=== PATIENT | female | born 1985 | race Caucasian/White ===

== ENCOUNTER 2017-07-15 15:51 | Inpatient (IN) | payer MEDICAID ==
[~2017-07-15] VITALS: Ht 160 cm; Wt 77.0 kg
[2017-07-15 17:58] VITALS: BP 130/85
[2017-07-15] MEDS ORDERED: NO HOME MEDS (18:11)
[2017-07-15] MEDS: K and/or MAG REPLACEMENT MC SCH (18:20)
[2017-07-15] MEDS ORDERED: magnesium 2GM in 50ml NS 50 ML IV PRN (18:20)
[2017-07-15] MEDS ORDERED: potassium Cl 40MEQ/NS 500ml 500 ML IV PRN ×2 (18:20)
[2017-07-15] MEDS ORDERED: levoFLOXACIN-Levaquin 500mg/D5 100 ML IV SCH (18:20)
[2017-07-15] MEDS ORDERED: HYDROcodone/acetaminophen 5mg/325mg tablet PO PRN (18:20)
[2017-07-15] MEDS ORDERED: acetaminophen 325mg tablet PO PRN ×2 (18:20)
[2017-07-15] MEDS ORDERED: magnesium hydroxide 30ml (MOM) UD suspension PO PRN (18:20)
[2017-07-15] MEDS ORDERED: magnesium 4gm in 100ml NS 100 ML IV PRN (18:20)
[2017-07-15] MEDS ORDERED: potassium Cl 20 mEq SR tablet PO PRN ×2 (18:20)
[2017-07-15] MEDS ORDERED: HYDROmorphone inj. 0.5 MG/0.5 ML DISP.SYRIN IV PRN ×2 (18:20)
[2017-07-15] MEDS ORDERED: magnesium Cl slow-release 64mg tablet PO PRN (18:20)
[2017-07-15] MEDS ORDERED: mag hydrox/Alum hydrox/simeth 30ml oral suspension PO PRN (18:20)
[2017-07-15] MEDS: normal saline 1000ml 1,000 ML IV SCH (19:00)
[2017-07-15] MEDS: HYDROcodone/acetaminophen 10/325mg tab PO PRN ×2 (19:21→23:57)
[2017-07-15] MEDS: ondansetron/PF 4mg/2ml inj IV PRN (19:25)
[2017-07-15 19:45] VITALS: BP 149/98
[2017-07-15 20:21] LABS: BASOPHILS % (AUTO) 0.1 % (0-1); EOSINOPHILS # (AUTO) 0.1 X10'3 (0-0.9); EOSINOPHILS % (AUTO) 1.1 % (0-6); HEMATOCRIT 35.2 % (35.0-45.0); HEMOGLOBIN 12.3 g/dl (12.0-16.0); LYMPHOCYTES # (AUTO) 0.4 X10'3 (1.1-4.8); LYMPHOCYTES % (AUTO) 4.5 % (21-51); MEAN CORPUSCULAR VOLUME 82.9 FL (78-98); MEAN PLATELET VOLUME 6.8 FL (7.4-10.4); MONOCYTES # (AUTO) 0.3 X10'3 (0-0.9); MONOCYTES % (AUTO) 3.1 % (2-12); NEUTROPHILS # (AUTO) 8.5 X10'3 (1.8-7.7); NEUTROPHILS % (AUTO) 91.2 % (42-75); PLATELET COUNT 194 X10'3 (140-440); RED BLOOD COUNT 4.25 X10'6 (4.20-5.60); RED CELL DISTRIBUTION WIDTH 12.8 % (11.5-14.5); WHITE BLOOD COUNT 9.3 X10'3 (4.5-11.0)
[2017-07-15 20:33] LABS: INR 1.1 INR; PARTIAL THROMBOPLASTIN TIME 36 SECONDS (22-32); PROTHROMBIN TIME 11.3 SECONDS (9.0-12.0)
[2017-07-15 20:46] LABS: ALANINE AMINOTRANSFERASE 22 U/L (12-78); ALBUMIN/GLOBULIN RATIO 0.7 (1.1-1.5); ALKALINE PHOSPHATASE 66 IU/L (46-116); ANION GAP 10 (8-16); ASPARTATE AMINO TRANSFERASE 14 U/L (10-37); BILIRUBIN,TOTAL 0.8 MG/DL (0.1-1.0); BLOOD UREA NITROGEN 10 MG/DL (7-18); BUN/CREATININE RATIO 7.2 (6.6-38.0); CALCIUM 8.4 MG/DL (8.5-10.1); CHLORIDE 102 MMOL/L (99-107); CREATININE 1.39 MG/DL (0.40-0.90); GLUCOSE 155 MG/DL (70-104); MAGNESIUM 1.4 MG/DL (1.5-2.4); POTASSIUM 3.3 MMOL/L (3.5-5.1); SODIUM 136 MMOL/L (135-145); TOTAL CARBON DIOXIDE 24.3 MMOL/L (24-32); TOTAL PROTEIN 7.4 G/DL (6.4-8.2); eGFR 44 ML/MIN
[2017-07-15] MEDS ORDERED: temazepam 15mg capsule PO PRN (21:00)
[2017-07-15] MEDS: levoFLOXACIN-Levaquin 500mg/D5 100 ML IV SCH (21:10)
[2017-07-16] VITALS (19 sets, daily range): BP systolic 110–127; BP diastolic 70–87
[2017-07-16 00:58] LABS: CLARITY,URINE CLEAR (Clear); COLOR,URINE STRAW (Yellow); GLUCOSE, URINE NEGATIVE (Neg); KETONES,URINE NEGATIVE (Neg); LEUKOCYTE ESTERASE ,URINE TRACE (Neg); NITRITES, URINE NEGATIVE (Neg); OCCULT BLOOD,URINE TRACE-INTACT (Neg); PH,URINE 6.5 (4.8-8.0); PROTEIN,URINE NEGATIVE (Neg); UROBILINOGEN,URINE 0.2 E.U/dL (0.2-1.0)
[2017-07-16 01:02] LABS: UA COLLECTION TYPE VOIDED
[2017-07-16 01:05] LABS: BACTERIA,URINE FEW /HPF (Neg); MUCUS STRANDS NONE SEEN /LPF (Neg); RBC,URINE 0-2 /HPF (0-2); SQUAMOUS EPITHELIAL CELL,UR FEW /LPF (FEW)
[2017-07-16] MEDS: ondansetron/PF 4mg/2ml inj IV PRN (02:46)
[2017-07-16] MEDS: normal saline 1000ml 1,000 ML IV SCH ×3 (04:20→21:12)
[2017-07-16] MEDS: HYDROcodone/acetaminophen 10/325mg tab PO PRN ×2 (04:43→17:46)
[2017-07-16 05:13] LABS: BASOPHILS % (AUTO) 0 % (0-1); EOSINOPHILS # (AUTO) 0.1 X10'3 (0-0.9); HEMATOCRIT 33.3 % (35.0-45.0); HEMOGLOBIN 11.7 g/dl (12.0-16.0); LYMPHOCYTES # (AUTO) 0.6 X10'3 (1.1-4.8); LYMPHOCYTES % (AUTO) 7.4 % (21-51); MEAN CORPUSCULAR HEMOGLOBIN 29.2 PG (27.0-31.0); MEAN CORPUSCULAR VOLUME 83.4 FL (78-98); MONOCYTES # (AUTO) 0.4 X10'3 (0-0.9); NEUTROPHILS % (AUTO) 86.6 % (42-75); PLATELET COUNT 184 X10'3 (140-440); RED BLOOD COUNT 3.99 X10'6 (4.20-5.60); RED CELL DISTRIBUTION WIDTH 12.9 % (11.5-14.5); WHITE BLOOD COUNT 8.1 X10'3 (4.5-11.0)
[2017-07-16 05:33] LABS: ALANINE AMINOTRANSFERASE 21 U/L (12-78); ALBUMIN 2.6 G/DL (3.4-5.0); ALBUMIN/GLOBULIN RATIO 0.6 (1.1-1.5); ALKALINE PHOSPHATASE 61 IU/L (46-116); ANION GAP 8 (8-16); ASPARTATE AMINO TRANSFERASE 18 U/L (10-37); BILIRUBIN,TOTAL 0.6 MG/DL (0.1-1.0); BLOOD UREA NITROGEN 10 MG/DL (7-18); CALCIUM 8.8 MG/DL (8.5-10.1); CHLORIDE 107 MMOL/L (99-107); CREATININE 1.25 MG/DL (0.40-0.90); GLUCOSE 109 MG/DL (70-104); MAGNESIUM 1.7 MG/DL (1.5-2.4); POTASSIUM 4.4 MMOL/L (3.5-5.1); SODIUM 141 MMOL/L (135-145); TOTAL CARBON DIOXIDE 25.6 MMOL/L (24-32); TOTAL PROTEIN 6.9 G/DL (6.4-8.2); eGFR 49 ML/MIN
[2017-07-16] MEDS: K and/or MAG REPLACEMENT MC SCH (08:00)
[2017-07-16] MEDS: morphine 4 MG/ML inj SYRINge IV PRN ×2 (08:19→19:35)
[2017-07-16] MEDS ORDERED: ringers solution, lacted 1,000 ML IV SCH (09:07)
[2017-07-16] MEDS ORDERED: enalaprilat dihydrate 2.5mg/2ml vial IV PRN (09:10)
[2017-07-16] MEDS ORDERED: ondansetron/PF 4mg/2ml inj IV PRN (09:10)
[2017-07-16] MEDS ORDERED: fentaNYL/PF 50MCG/1 ML 2ML syringe IV PRN ×2 (09:10)
[2017-07-16] MEDS ORDERED: morphine 4 MG/ML inj SYRINge IV PRN ×2 (09:10)
[2017-07-16] MEDS ORDERED: hydrALAZINE 20mg/ml inj. IV PRN (09:10)
[2017-07-16] MEDS ORDERED: iohexol 300 MG/1 ML 50ml polymer ONE (09:51)
[2017-07-16] MEDS ORDERED: sevoflurane 250ml liquid IH ONE (09:58)
[2017-07-16] MEDS ORDERED: fentaNYL/PF 50MCG/1 ML 2ML syringe ONE (10:04)
[2017-07-16] MEDS ORDERED: ondansetron/PF 4mg/2ml inj ONE (10:05)
[2017-07-16] MEDS ORDERED: midazolam 2 mg/2 ml injection ONE (10:05)
[2017-07-16] MEDS ORDERED: dexamethasone sod phosphate 4mg/ml inj. ONE (10:05)
[2017-07-16] MEDS ORDERED: LIDOcaine 2% (20mg/ml) 5ml vial ONE (10:05)
[2017-07-16] MEDS ORDERED: propofol inj 20 ML IV ONE (10:05)
[2017-07-16] MEDS: lactobacillus rhamnosus 10,000 MMU CELLS/CAPSULE PO SCH (19:34)
[2017-07-16] MEDS: levoFLOXACIN-Levaquin 500mg/D5 100 ML IV SCH (21:12)
[2017-07-17 04:39] VITALS: BP 110/68
[2017-07-17 05:10] LABS: BASOPHILS % (AUTO) 0 % (0-1); EOSINOPHILS % (AUTO) 0 % (0-6); HEMATOCRIT 34.4 % (35.0-45.0); HEMOGLOBIN 11.9 g/dl (12.0-16.0); LYMPHOCYTES # (AUTO) 0.7 X10'3 (1.1-4.8); LYMPHOCYTES % (AUTO) 7.7 % (21-51); MEAN CORPUSCULAR HEMOGLOBIN 29.1 PG (27.0-31.0); MEAN CORPUSCULAR HGB CONC 34.6 % (33.0-36.5); MEAN CORPUSCULAR VOLUME 84.1 FL (78-98); MEAN PLATELET VOLUME 7.3 FL (7.4-10.4); MONOCYTES # (AUTO) 0.3 X10'3 (0-0.9); MONOCYTES % (AUTO) 3.6 % (2-12); NEUTROPHILS # (AUTO) 8.2 X10'3 (1.8-7.7); NEUTROPHILS % (AUTO) 88.7 % (42-75); PLATELET COUNT 185 X10'3 (140-440); RED BLOOD COUNT 4.08 X10'6 (4.20-5.60); WHITE BLOOD COUNT 9.2 X10'3 (4.5-11.0)
[2017-07-17 05:35] LABS: ALANINE AMINOTRANSFERASE 23 U/L (12-78); ALBUMIN 2.6 G/DL (3.4-5.0); ALBUMIN/GLOBULIN RATIO 0.5 (1.1-1.5); ALKALINE PHOSPHATASE 74 IU/L (46-116); ANION GAP 11 (8-16); ASPARTATE AMINO TRANSFERASE 13 U/L (10-37); BILIRUBIN,TOTAL 0.3 MG/DL (0.1-1.0); BLOOD UREA NITROGEN 16 MG/DL (7-18); BUN/CREATININE RATIO 15.8 (6.6-38.0); CALCIUM 8.9 MG/DL (8.5-10.1); CHLORIDE 107 MMOL/L (99-107); CREATININE 1.01 MG/DL (0.40-0.90); GLUCOSE 157 MG/DL (70-104); MAGNESIUM 1.9 MG/DL (1.5-2.4); SODIUM 141 MMOL/L (135-145); TOTAL CARBON DIOXIDE 22.8 MMOL/L (24-32); TOTAL PROTEIN 7.5 G/DL (6.4-8.2); eGFR 63 ML/MIN
[2017-07-17 08:00] VITALS: BP 99/65
[2017-07-17] MEDS: K and/or MAG REPLACEMENT MC SCH (08:00)
[2017-07-17] MEDS: lactobacillus rhamnosus 10,000 MMU CELLS/CAPSULE PO SCH (09:11)
[2017-07-17] MEDS: normal saline 1000ml 1,000 ML IV SCH (10:19)
[2017-07-17] MEDS ORDERED: OXYB5TAB11 PO (10:27)
[2017-07-17] MEDS ORDERED: LEVO500T2 PO (10:27)
[2017-07-17 12:15] VITALS: BP 131/96
== END 2017-07-17 13:15 | disposition home or self-care (01) | DRG 720 ==
LOC: SUR 3N 17:32 → PACU 07-16 10:41 → SUR 3N 07-16 11:37
PROVIDERS: ADMIT Internal Medicine; ATTEND Family Medicine
PROC: BT161ZZ Fluoroscopy of Right Ureter using Low Osmolar Contrast (ICD-10-PCS; 2017-07-16)
PROC: 0T768DZ Dilation of Right Ureter with Intraluminal Device, Via Natural or Artificial Opening Endoscopic (ICD-10-PCS; principal; 2017-07-16 10:03)
DX: A41.9 Sepsis, unspecified organism (principal); E83.42 Hypomagnesemia; N18.3 Chronic kidney disease, stage 3 (moderate); N13.6 Pyonephrosis; E87.6 Hypokalemia; Z87.442 Personal history of urinary calculi
CPT/HCPCS: 36415; 76000; 80053; 81001; 83605; 83735; 85025; 85610; 85730; 87040; 87070; 87077; 87088; 93005; A4402; C1758; C1769; C2617; J1100; J1956; J2001; J2250; J2270; J2405; J2704; J3010; J7030; J7120; Q9967